=== PATIENT | female | born 1990 | race Two or more races ===

== ENCOUNTER 2016-11-08 01:40 | Emergency (ER) | payer BC ==
[~2016-11-08] VITALS: Ht 167.6 cm; Wt 56.7 kg
[2016-11-08 01:40] VITALS: BP 128/89
[2016-11-08] MEDS ORDERED: LIDOCAINE 1%-EPI 1:200,000 SDV 10 ML VIAL IJ ONE (01:57)
[2016-11-08] MEDS ORDERED: TDAP [DIPH/PERTUSSIS/TET] 0.5 ML VIAL IM ONE ×2 (02:30→02:46)
[2016-11-08] MEDS ORDERED: ONDANSETRON HCL/PF 4 MG/2 ML VIAL ONE (02:34)
--- NOTE | 2016-11-08 02:43 | NUR ---
DR. GARCIA AT BEDSIDE FOR LAC REPAIR.
== END 2016-11-08 02:57 | disposition home or self-care (01) ==
LOC: ER 01:43
DX: S51.812A Laceration without foreign body of left forearm, initial encounter (principal); W26.0XXA Contact with knife, initial encounter; Y93.G1 Activity, food preparation and clean up; Y92.89 Other specified places as the place of occurrence of the external cause; Y99.9 Unspecified external cause status
CPT/HCPCS: 12002; 90471; 90715; 99283; A4606; A6402 ×2; J3490; Z7610; J2405